=== PATIENT | female | born 1950 | race Caucasian/White ===

== ENCOUNTER 2021-12-08 08:01 | Observation (INO) ==
--- NOTE | 2021-11-07 09:57 | PAT Medication Instructions ---
Medication Instructions Date of Service November 07, 2021 Home Medications Medication Instructions Recorded tramadol 50 mg tablet 50 mg PO Q6H PRN #30 tab 10/17/21 Lactobacillus acidophilus 1.5 mg (250 million cell) capsule (Probiotic Acidophilus) 1 mmu cells PO DAILY albuterol sulfate 90 mcg/actuation aerosol inhaler (Ventolin HFA) 1 inh INHALATION QID biotin 2,500 mcg capsule 5,000 mcg PO DAILY cholecalciferol (vitamin D3) 125 mcg (5,000 unit) capsule 125 mcg PO DAILY citalopram 40 mg tablet 20 mg PO QAM diclofenac sodium 1 % topical gel 2 g TOPICAL QID losartan 100 mg tablet 100 mg PO QAM multivitamin 1 tab PO DAILY nystatin 100,000 unit/gram topical cream 1 applic TOPICAL DAILY PRN omega 2-tnl-cch-fish oil 300 mg-1,000 mg capsule (Fish Oil) 1 cap PO BID omeprazole 40 mg capsule,delayed release 40 mg PO BID simvastatin 20 mg tablet 20 mg PO QPM triamterene 37.5 mg-hydrochlorothiazide 25 mg capsule 1 cap PO QAM valacyclovir 1 gram tablet 1,000 mg PO UD PRN tramadol 50 mg tablet 50 mg PO Q6H PRN cyanocobalamin (vitamin B-12) 1,000 mcg/mL injection kit 1,000 mcg IM MONTHLY fluticasone 100 mcg-salmeterol 50 mcg/dose blistr powdr for inhalation (Advair Diskus) 1 inh INHALATION BID STOP taking 2 weeks before surgery (or as soon as possible if surgery is within 2 weeks) omega 2-ogb-vtp-fish oil 300 mg-1,000 mg capsule (Fish Oil) 1 cap PO BID STOP taking 24 hours before surgery diclofenac sodium 1 % topical gel 2 g TOPICAL QID nystatin 100,000 unit/gram topical cream 1 applic TOPICAL DAILY PRN DO NOT take the morning of surgery Lactobacillus acidophilus 1.5 mg (250 million cell) capsule (Probiotic Acidophilus) 1 mmu cells PO DAILY biotin 2,500 mcg capsule 5,000 mcg PO DAILY cholecalciferol (vitamin D3) 125 mcg (5,000 unit) capsule 125 mcg PO DAILY losartan 100 mg tablet 100 mg PO QAM multivitamin 1 tab PO DAILY triamterene 37.5 mg-hydrochlorothiazide 25 mg capsule 1 cap PO QAM cyanocobalamin (vitamin B-12) 1,000 mcg/mL injection kit 1,000 mcg IM MONTHLY Take morning of surgery With a small sip of water, OTHERWISE NOTHING TO EAT OR DRINK AFTER MIDNIGHT: albuterol sulfate 90 mcg/actuation aerosol inhaler (Ventolin HFA) 1 inh INHALATION QID (use if needed; please bring rescue inhaler with you to hospital day of surgery if possible) citalopram 40 mg tablet 20 mg PO QAM omeprazole 40 mg capsule,delayed release 40 mg PO BID valacyclovir 1 gram tablet 1,000 mg PO UD PRN (if needed) tramadol 50 mg tablet 50 mg PO Q6H PRN (okay to take up to 4 hours prior to surgery if needed) fluticasone 100 mcg-salmeterol 50 mcg/dose blistr powdr for inhalation (Advair Diskus) 1 inh INHALATION BID Take evening before surgery albuterol sulfate 90 mcg/actuation aerosol inhaler (Ventolin HFA) 1 inh INHALATION QID omeprazole 40 mg capsule,delayed release 40 mg PO BID simvastatin 20 mg tablet 20 mg PO QPM valacyclovir 1 gram tablet 1,000 mg PO UD PRN (if needed) tramadol 50 mg tablet 50 mg PO Q6H PRN (if needed) fluticasone 100 mcg-salmeterol 50 mcg/dose blistr powdr for inhalation (Advair D iskus) 1 inh INHALATION BID Other Notes If you have any questions please call us at [phone] or [phone] or [phone] or [phone]
--- NOTE | 2021-11-11 12:58 | Anesthesiology Consultation ---
Date of Service November 11, 2021 Assessment & Plan (1) Encounter for pre-operative examination: COVID screening: Per assessment on 11/11: No known COVID-19 positive contacts or current COVID-19 related symptoms. Travel screen negative. Patient vaccinated. Surgeon arranging preop COVID testing. Awaiting results. Chart Review Chart Review: Acceptable Risk for Surgery and Patient seen in Pre Admission Testing Teaching & Discussion Pre-Anesthesia Teaching/Discussion Notes: Instructed NPO after midnight before surgery,except medications with 15 cc of water. Medication instructions p rovided according to the PAT guidelines. History Surgery Operation Date: 12/08/21 10:40 Proposed Procedures p Left Anterior Total Hip Arthroplasty - Anand Katz, Height/Weight Height: 5 ft 6 in Weight: 80.7 kg Allergies Allergy/AdvReac Type Severity Reaction Status Date / Time gabapentin AdvReac Intermediate "Zombie-like, Verified 11/11/21 08:47 spaced out" milk AdvReac Intermediate Migraines Verified 11/11/21 08:47 Medications Home Medications Medication Instructions Recorded Confirmed Last Taken Lactobacillus acidophilus 1.5 mg 1 mmu cells PO DAILY 10/13/21 11/06/21 Unknown (250 million cell) capsule (Probiotic Acidophilus) albuterol sulfate 90 mcg/actuation 1 inh INHALATION QID 10/13/21 11/06/21 Unknown aerosol inhaler (Ventolin HFA) biotin 2,500 mcg capsule 5,000 mcg PO DAILY cap 10/13/21 11/06/21 Unknown cholecalciferol (vitamin D3) 125 125 mcg PO DAILY 10/13/21 11/06/21 Unknown mcg (5,000 unit) capsule citalopram 40 mg tablet 20 mg PO QAM 10/13/21 11/06/21 Unknown diclofenac sodium 1 % topical gel 2 g TOPICAL QID 10/13/21 11/06/21 Unknown losartan 100 mg tablet 100 mg PO QAM 10/13/21 11/06/21 Unknown multivitamin 1 tab PO DAILY 10/13/21 11/06/21 Unknown nystatin 100,000 unit/gram topical 1 applic TOPICAL DAILY PRN 10/13/21 11/06/21 Unknown cream omega 1-ate-umt-fish oil 300 1 cap PO BID 10/13/21 11/06/21 Unknown mg-1,000 mg capsule (Fish Oil) omeprazole 40 mg capsule,delayed 40 mg PO BID 10/13/21 11/06/21 Unknown release simvastatin 20 mg tablet 20 mg PO QPM 10/13/21 11/06/21 Unknown triamterene 37.5 1 cap PO QAM 10/13/21 11/06/21 Unknown mg-hydrochlorothiazide 25 mg capsule valacyclovir 1 gram tablet 1,000 mg PO UD PRN 10/13/21 11/06/21 Unknown tramadol 50 mg tablet 50 mg PO Q6H PRN #30 tab 10/17/21 11/06/21 Unknown cyanocobalamin (vitamin B-12) 1,000 mcg IM MONTHLY 11/06/21 11/06/21 Unknown 1,000 mcg/mL injection kit fluticasone 100 mcg-salmeterol 50 1 inh INHALATION BID 11/06/21 11/06/21 Unknown mcg/dose blistr powdr for inhalation (Advair Diskus) tramadol 50 mg tablet 50 mg PO Q6H PRN #30 tab 11/11/21 11/11/21 Unknown Past Medical History Medical History Asthma Stable Bradycardia Chronic Degenerative disc disease Depression GERD (gastroesophageal reflux disease) Controlled Hematoma Left hip, easy bruising recent development, following with PCP who recently ordered coags Hiatal hernia Moderately large per 04/2021 CXR History of anemia Hgb 11-12 range per comparison labs Hyperlipidemia Hypertension Migraine Pneumothorax 03/2021 s/p chest tube (r/t fall/rib fractures) Thyroid nodule Exercise / Class Metabolic Activity III < 4 Walking/Shop/Light housework Past Family History Family History Other Heart disease No family history of adverse response to anesthesia Stroke Past Surgical History Surgical History H/O laparoscopy History of appendectomy History of bunionectomy Right History of cataract surgery R/L History of colonoscopy History of tonsillectomy and adenoidectomy Past Anesthesia History No Hx of Anesthesia Complications and No Family Hx of Anesthesia Complications History of PONV No Hx of PONV and Hx of Motion Sickness (rare) Social History Smoking Status: Never smoker Do You Dip or Chew Tobacco: No Hx Alcohol Use: Yes alcohol intake frequency: holidays/special occasions only Hx Substance Use: No substance use type: does not use Review of Systems Patient denies chest pain, shortness of breath, fever, chills, cough, wheezing, palpitations. Physical Exam Vital Signs VITALS BP 145/77 P 64 TEMP 97.9 SP02 98%RA RESP 18 PHYSICAL Full cervical extension range of motion. Full TMJ range of motion. TMD 3 finger breaths Mallampati Score 4 (very small oral opening) Dentition: upper/lower dentures Lungs: clear throughout to auscultation Cardiac: regular rate and rhythm, no murmurs noted Spine: normal Carotid arteries: negative bruit Extremities: no edema Lab Results Anesthesia Preop Results Results Anesthesia Widget: WBC 4.39 K/uL (4.8-10.8) L 11/11/21 Hgb 11.2 g/dL (12.0-16.0) L 11/11/21 Hct 33.9 % (37-47) L 11/11/21 Plt 307 K/uL (130-400) 11/11/21 Na 132 mmol/L (136-145) L 11/11/21 K 4.4 mmol/L (3.5-5.1) 11/11/21 Cl 98 mmol/L (98-107) 11/11/21 CO2 27 mmol/L (21-32) 11/11/21 BUN 18 mg/dl (6-23) 11/11/21 Creat 1.22 mg/dl (0.6-1.2) H 11/11/21 Glucose Level 81 mg/dl (70-99(Fasting)) 11/11/21 Blood Type A Positive 11/11/21 Antibody Screen NEGATIVE 11/11/21 Testing Laboratory Results 11/05/21 PT 11.0 PTT 33.1 INR 0.97 Electrocardiogram Date: 03/14/21 Sinus rhythm with first-degree AV block at 69 bpm. Pattern consistent with pulmonary disease. LAFB. Chest X-Ray Date: 04/22/21 Negative for pneumothorax status post removal of pleural tube. Continued right upper lateral chest wall pleural thickening at the site of previously demonstrated rib fractures. Moderate large hiatal hernia. No pleural effusion or lung infiltrate seen. Echocardiogram Date: 12/31/20 EF 60-65%. No regional motion abnormalities. Mild LAD. No significant valvular disease.
--- NOTE | 2021-12-04 12:21 | History & Physical Report ---
Date of Service December 04, 2021 Assessment & Plan (1) Osteoarthritis of left hip: We will proceed with a left anterior total of arthroplasty. Postoperatively she will be started on aspirin for DVT prophylaxis and kept overnight in the hospital for postoperative medical management. She plans to have the hospital set up home health upon discharge. History of Present Illness Chief Complaint: Osteoarthritis left hip. Primary Care Provider: Gaviota Lin Toshia Benitez is a pleasant 71-year-old female who has been dealing with chronic worsening bilateral hip pain. It has gone to the point where she has fallen several times. She recently went to the emergency room where she had a CAT scan of her hips. The CAT scan shows advanced arthritis. She really struggles with pain in her groin that radiates around her thigh and into her gluteal region. She does walk with an antalgic gait. X-rays in our office have shown advanced osteoarthritis of the left hip. After failing conservative treatment, she has elected proceed with a left anterior total hip arthroplasty.. Allergies Allergy/AdvReac Type Severity Reaction Status Date / Time gabapentin AdvReac Intermediate "Zombie-like, Verified 11/11/21 08:47 spaced out" milk AdvReac Intermediate Migraines Verified 11/11/21 08:47 Home Medications Medication Instructions Recorded Confirmed Type Lactobacillus acidophilus 1.5 mg 1 mmu cells PO DAILY 10/13/21 11/06/21 History (250 million cell) capsule (Probiotic Acidophilus) albuterol sulfate 90 mcg/actuation 1 inh INHALATION QID 10/13/21 11/06/21 History aerosol inhaler (Ventolin HFA) biotin 2,500 mcg capsule 5,000 mcg PO DAILY cap 10/13/21 11/06/21 History cholecalciferol (vitamin D3) 125 125 mcg PO DAILY 10/13/21 11/06/21 History mcg (5,000 unit) capsule citalopram 40 mg tablet 20 mg PO QAM 10/13/21 11/06/21 History diclofenac sodium 1 % topical gel 2 g TOPICAL QID 10/13/21 11/06/21 History losartan 100 mg tablet 100 mg PO QAM 10/13/21 11/06/21 History multivitamin 1 tab PO DAILY 10/13/21 11/06/21 History nystatin 100,000 unit/gram topical 1 applic TOPICAL DAILY PRN 10/13/21 11/06/21 History cream omega 4-fhl-mlo-fish oil 300 1 cap PO BID 10/13/21 11/06/21 History mg-1,000 mg capsule (Fish Oil) omeprazole 40 mg capsule,delayed 40 mg PO BID 10/13/21 11/06/21 History release simvastatin 20 mg tablet 20 mg PO QPM 10/13/21 11/06/21 History triamterene 37.5 1 cap PO QAM 10/13/21 11/06/21 History mg-hydrochlorothiazide 25 mg capsule valacyclovir 1 gram tablet 1,000 mg PO UD PRN 10/13/21 11/06/21 History tramadol 50 mg tablet 50 mg PO Q6H PRN #30 tab 10/17/21 11/06/21 Rx cyanocobalamin (vitamin B-12) 1,000 mcg IM MONTHLY 11/06/21 11/06/21 History 1,000 mcg/mL injection kit fluticasone 100 mcg-salmeterol 50 1 inh INHALATION BID 11/06/21 11/06/21 History mcg/dose blistr powdr for inhalation (Advair Diskus) tramadol 50 mg tablet 50 mg PO Q6H PRN #30 tab 11/11/21 11/11/21 Rx Past Med/Surg History Medical History Asthma Stable Bradycardia Chronic Degenerative disc disease Depression GERD (gastroesophageal reflux disease) Controlled Hematoma Left hip, easy bruising recent development, following with PCP who recently ordered coags Hiatal hernia Moderately large per 04/2021 CXR History of anemia Hgb 11-12 range per comparison labs Hyperlipidemia Hypertension Migraine Pneumothorax 03/2021 s/p chest tube (r/t fall/rib fractures) Thyroid nodule Surgical History H/O laparoscopy History of appendectomy History of bunionectomy Right History of cataract surgery R/L History of colonoscopy History of tonsillectomy and adenoidectomy Family History Other Heart disease No family history of adverse response to anesthesia Stroke Social History Smoking Status: Never smoker Second Hand Exposure: No; Hx Alcohol Use: Yes Hx Substance Use: No Preferred Language: [place] Aircraft Ordnance Technician Required: No Beliefs That Will Affect Care: None marital status: Current Living Situation: Spouse current occupational status: retired Feels Safe at Home: Yes Assistive Devices: Denture - Upper, Denture - Lower and Glasses Review of Systems All systems reviewed & are unremarkable except as noted in HPI & below. Physical Exam On physical examination of the left hip, she has trouble lying flat. She has very limited range of motion of her hip. She has pain with forced internal and external rotation.. Constitutional WD/WN, vitals as above Eyes PERRL, conjunctivae normal, anicteric sclerae ENMT external ear and nose normal, oropharynx normal Neck trachea midline, no thyromegaly Respiratory normal respiratory effort Cardiovascular RRR, no murmur, no edema Gastrointestinal (Abdomen) normal bowel sounds, soft, nontender, no hepatosplenomegaly Psychiatric A+Ox3, euthymic affect Results & Data Results & Data Laboratory Results . Diagnostic Findings X-rays of the left hip and pelvis show advanced osteoarthritis with joint space narrowing, osteophyte formation, and [id number] articulation PG Care Time/CCT Total # of Minutes Spent Total Time Spent with Patient: Total time spent is greater than 50% in coordination of care (as documented) at patient's floor/unit and/or counseling patient: Coding Level of Care Code None Diagnoses Osteoarthritis of left hip M16.12
[~2021-12-08 08:01] MED LIST: ACETAMINOPHEN 500 MG TAB PO SCH; BUPIVACAINE 0.5 % 5 MG/1 ML PF 10ML VIAL ONE; GABAPENTIN 300 MG CAP PO SCH; Ketorolac (*for OR use only*) 30 MG, dexAMETHasone 4 MG, KETAMINE HCL (**OR use only) 1... INFIL SCH; LR 500ML BOLUS, THEN 15ML/HR IV SCH; LR 60ML/HR IV SCH; TRANEXAMIC ACID 1,000 MG **IV Intra-op IV SCH; TRANEXAMIC ACID 1,000 MG **IV Pre-op IV SCH; ceFAZolin 2000MG 2,000 MG/15 ML SYR IV SCH; dexAMETHasone 4 MG TAB PO SCH
--- NOTE | 2021-12-08 08:30 | History & Physical Bridge Note ---
Date of Service December 08, 2021 History & Physical Bridge Note I have examined the patient, reviewed the History & Physical and in the interval since the performance of the History & Physical I have noted the following changes of clinical significance: no changes noted
[2021-12-08] MEDS ORDERED: MIDAZOLAM HCL 1 MG/ML 2ML VIAL ONE (10:19)
[2021-12-08] MEDS ORDERED: HYDROmorphone INJ 1 MG/ML SYRINGE IV PRN (10:27)
[2021-12-08] MEDS ORDERED: KETOROLAC 30 MG/ML VIAL IV PRN (10:27)
[2021-12-08] MEDS ORDERED: ATROPINE SULFATE 0.1 MG/ML 10ML SYR IV PRN (10:27)
[2021-12-08] MEDS ORDERED: ONDANSETRON INJ 2 MG/ML 2 ML VIAL IV PRN ×2 (10:27→14:43)
[2021-12-08] MEDS ORDERED: ORTHO JOINT ANESTHETIC ONE (11:50)
[2021-12-08] MEDS ORDERED: LIDOCAINE 2% 2 ML VIAL/AMP(20MG/ML) INFIL ONE (12:22)
[2021-12-08] MEDS ORDERED: PROPOFOL IV EMULSION 10 MG/ML 20 ML VIAL IV ONE (12:22)
--- NOTE | 2021-12-08 13:02 | Fluoroscopy Report ---
FL hip LT 1V CLINICAL HISTORY: Total left hip arthroplasty. COMPARISON STUDY: Left hip radiographs October 13, 2021. FLUOROSCOPY TIME: 23 seconds. FLUOROSCOPIC IMAGES: 2 FINDINGS: Fluoroscopy was provided during total left hip arthroplasty. Alignment is anatomic. Acetabu lar screw is noted. Hardware is intact. No fracture is identified by fluoroscopy. IMPRESSION: Fluoroscopy provided during total left hip arthroplasty. ACT 112: Negative or not required by law. Electronically signed by: Tin Gomez M.D. 12/08/2021 1:00 PM
--- NOTE | 2021-12-08 13:08 | Operative Report ---
PG Post Operative Report Pre & Post Diagnosis Operation Date: 12/08/21 10:40 Pre-Op Diagnosis: Left Hip Osteoarthritis Post-Op Diagnosis: Left Hip Osteoarthritis I identified the patient and participated in the time-out.: Yes Procedure Operation Date: 12/08/21 10:40 Actual Procedures p Left Anterior Total Hip Arthroplasty--Uncemented(Left) - Anand Katz DO Surgeon Anand Katz DO Buckle Inspector Anand Owusu PAC Estimated Blood Loss 250 Findings Consistent with Post-Op Diagnosis Specimens Left femoral head Complications none Disposition Disposition: Recovery Room Indications Eli is a pleasant 71-year-old female who is been dealing with chronic increa sing left hip and groin pain. X-rays and clinical examination were diagnostic for advanced arthritis of the left hip. After failing conservative treatment, she elected proceed with a left total hip arthroplasty. Description of Procedure Implants used I used a ZimmerBiomet total hip arthroplasty system with a size 5 standard offset Avenir Complete stem, a 50 mm G7 cup with a 25mm screw, an E1 polyethylene liner, a 36 mm ceramic head with a 0 neck. Eli arrived at the hospital for the above procedure. She was seen in the preoperative holding area and the operative extremity was identified and signed. She was given a spinal anesthetic, a preoperative antibiotic, and TXA. She was then taken back to the operating room and laid on the table in the supine position. She was given basic sedation. The operative leg was secured to a Puristst leg positioner. The hip was then prepped and draped in sterile fashion. A timeout was done and the patient and the operative extremity was properly identified. An anterior approach was used. Dissection was taken down through the fascia and the tensor muscle belly was retracted laterally and the rectus was retracted medially. The circumflex vessels were identified and ligated. The capsule was then incised and tagged for later repair. The femoral neck was then cut and the femoral head was removed. The acetabulum was exposed. Time was spent doing a complete circumferential labral release. Sequential reaming of the acetabulum up to a size 49 reamer was done. Final reamings were done under fluoroscopy to ensure appropriate version. A Biomet 50mm G7 cup was then impacted into place. A single 25 mm screw was placed. The E1 polyethylene liner was then snapped into place. Surrounding soft tissues were then injected with 100 cc of an orthopedic pain control cocktail. The proximal femur was then exposed. Sequential broaching up to a size 5 broach was done. Off that broach a size 36 head with a 0 neck was trialed. The hip was reduced and fluoroscopic images showed anatomic alignment of the implants in acceptable length. The broach was removed. The final size 5 standard offset Avenir Complete stem was then impacted into place. A ceramic 36mm head with a 0 neck was then impacted onto the stem and the hip was reduced. Final fluoroscopic images showed anatomic alignment of the hip. The capsule was then closed with #1 Vicryl suture. A dilute betadyne lavage was then done for 3 minutes. The joint was then irrigated with normal saline solution. The fascia was closed with #1 PDS suture. Skin was closed with 2-0 Vicryl, marcia, and a Silverlon dressing. She was then transferred to a hospital bed and taken to the post anesthesia care unit in stable condition. She tolerated the procedure well. Anand Owusu PA-C, was present for the entire procedure. He was critical for patient positioning, prepping, draping, retraction exposure, wound closure and application of sterile dressing. I attest to the content of the Intraoperative Record and any orders documented therein. Any exceptions are noted below.
--- NOTE | 2021-12-08 13:45 | Anesthesiology Progress Note ---
Date of Service December 08, 2021 Anesthesia Post Procedure Vital Signs Vital Signs: Temp Pulse Pulse Resp BP BP Pulse Ox 12/08/21 13:35 56 L 16 142/84 H 95 12/08/21 13:25 59 L 16 129/81 95 12/08/21 13:15 36.6 C 70 16 131/81 97 12/08/21 08:29 36.6 C 60 18 141/98 H 97 Pain Intensity Left Hip: Pain Intensity: 5 Transfer of Care Handoff Completed per policy Notes Mental Status: alert / awake / arousable Patient Amnestic to Procedure: Yes Nausea / Vomiting: adequately controlled Pain: adequately controlled Airway Patency, RR, SpO2: stable & adequate BP & HR: stable & adequate Hydration State: stable & adequate Neuraxial Anesthesia: was administered and sensory block is resolving Anesthetic Complications: no major complications apparent
--- NOTE | 2021-12-08 14:01 | XRay Report ---
XR hip 1V LT w pelvis CLINICAL HISTORY: Postoperative evaluation. COMPARISON: Left hip radiographs October 13, 2021. FINDINGS: Alignment of the total left hip arthroplasty is anatomic. No periprosthetic fracture or un expected radiopaque foreign body is noted. There are skin marcia. IMPRESSION: Expected findings following total left hip arthroplasty. ACT 112: Negative or not required by law. Electronically signed by: Tin Gomez M.D. 12/08/2021 1:59 PM
[2021-12-08] MEDS ORDERED: MAGNESIUM HYDROXIDE SUSP 30 ML UDC PO PRN (14:43)
[2021-12-08] MEDS ORDERED: valACYclovir HCL 500 MG TABLET PO PRN (14:43)
[2021-12-08] MEDS ORDERED: METOCLOPRAMIDE HCL INJ 5 MG/ML 2 ML VIAL IV PRN (14:43)
[2021-12-08] MEDS ORDERED: bisacodyL 10 MG SUPP PR PRN (14:43)
[2021-12-08] MEDS ORDERED: NALOXONE HCL 0.4 MG/1 ML VIAL/CARP IV PRN (14:43)
[2021-12-08] MEDS ORDERED: NYSTATIN CR 15 GM TUBE EXT PRN (14:43)
[2021-12-08] MEDS: ACETAMINOPHEN 500 MG TAB PO SCH ×2 (16:16→20:46)
[2021-12-08] MEDS: KETOROLAC TROMETHAMINE 15 MG/ML VIAL IV SCH ×2 (16:17→20:46)
[2021-12-08] MEDS: SODIUM CHLORIDE 0.9% 1000ML 1,000 ML IV SCH (16:20)
[2021-12-08] MEDS: ALBUTEROL HFA 8 GM INHALER INH SCH ×2 (16:40→19:19)
[2021-12-08] MEDS: DICLOFENAC SOD 1% GEL 100 GM TUBE EXT SCH ×2 (18:11→20:47)
[2021-12-08] MEDS: oxyCODONE HCL IR 5 MG TAB (IMMEDIATE RELEASE) PO PRN ×2 (18:16→21:52)
[2021-12-08] MEDS: ceFAZolin 2000MG 2,000 MG/15 ML SYR IV SCH (18:17)
[2021-12-08] MEDS: ASPIRIN 81 MG ECTAB PO SCH (20:46)
[2021-12-08] MEDS: DOCUSATE SODIUM 100 MG CAP PO SCH (20:46)
[2021-12-08] MEDS ORDERED: SENNA 8.6 MG TAB PO SCH (21:00)
[2021-12-08] MEDS ORDERED: SIMVASTATIN 20 MG TAB PO SCH (21:00)
[2021-12-08] MEDS: HYDROmorphone INJ 0.5 MG/0.5 ML SYR IV PRN (22:37)
[2021-12-09] MEDS: SODIUM CHLORIDE 0.9% 1000ML 1,000 ML IV SCH (01:06)
[2021-12-09] MEDS: oxyCODONE HCL IR 5 MG TAB (IMMEDIATE RELEASE) PO PRN ×2 (01:27→11:12)
[2021-12-09] MEDS: ceFAZolin 2000MG 2,000 MG/15 ML SYR IV SCH (02:15)
[2021-12-09] MEDS: HYDROmorphone INJ 0.5 MG/0.5 ML SYR IV PRN (02:15)
[2021-12-09] MEDS: KETOROLAC TROMETHAMINE 15 MG/ML VIAL IV SCH ×2 (03:08→09:26)
[2021-12-09] MEDS: ACETAMINOPHEN 500 MG TAB PO SCH (05:30)
--- NOTE | 2021-12-09 06:37 | Orthopedic Progress Note ---
Date of Service December 09, 2021 Assessment & Plan (1) Status post left hip replacement: Overall she is doing well. She is having much pain in the left hip. She will be seen by physical therapy today for ambulation and range of motion exercises. She is on aspirin for DVT prophylaxis. She can be discharged home later today. She will follow-up with orthopedics in 2 weeks. Katharine Benitez was seen and examined at bedside this morning. Overall she is doing very well. She has a little bit of soreness in her hip but is not too bad. She has been up and ambulating to the bathroom. She has no complaints. Review of Systems All systems reviewed & are unremarkable except as noted in HPI & below. Physical Exam On physical examination of the left hip, the dressing is clean and dry. Her leg lengths are equal. She has active dorsiflexion plantarflexion of her left ankle.. Results & Data Results & Data Laboratory Results . Diagnostic Findings Postoperative x-rays of the left hip show the prosthesis to be in anatomic alignment without any evidence of fracture, desiccation, or loosening. PG Care Time/CCT Total # of Minutes Spent Total Time Spent with Patient: Total time spent is greater than 50% in coordination of care (as documented) at patient's floor/unit and/or counseling patient: Coding Level of Care Code 43819 Post Operative Follow-Up Diagnoses Status post left hip replacement Z96.642
--- NOTE | 2021-12-09 06:38 | Discharge Summary ---
Date of Service December 09, 2021 Admission HPI (Per Admitting) Eli is a pleasant 71-year-old female who has been dealing with chronic worsening bilateral hip pain. It has gone to the point where she has fallen several times. She recently went to the emergency room where she had a CAT scan of her hips. The CAT scan shows advanced arthritis. She really struggles with pain in her groin that radiates around her thigh and into her gluteal region. She does walk with an antalgic gait. X-rays in our office have shown advanced osteoarthritis of the left hip. After failing conservative treatment, she has elected proceed with a left anterior total hip arthroplasty.. Admission Exam (Per Admitting) On physical examination of the left hip, she has trouble lying flat. She has very limited range of motion of her hip. She has pain with forced internal and external rotation.. Principal Diagnosis Same as "Discharge Diagnosis" noted below under Discharge Instructions. Discharge Exam On physical examination of the left hip, the dressing is clean and dry. Her leg lengths are equal. She has active dorsiflexion plantarflexion of her left ankle.. Discharge Data Procedures Performed Operation Date: 12/08/21 10:40 Actual Procedures p Left Anterior Total Hip Arthroplasty--Uncemented(Left) - Anand Katz DO Ordered Studies 12/08/21 10:40 FL hip LT 1V Routine Hospital Course (1) Status post left hip replacement: On December 08, 2021 Eli arrived at [facility] and underwent a left hip replacement without complication. She had a spinal anesthetic. Postoperatively she was started on aspirin for DVT prophylaxis and transferred to the general orthopedic floors. Her hospital course was uneventful. On postop day #1, her vital signs were stable and her pain was well controlled. She was able to participate well with physical therapy doing ambulation and range of motion exercises. She was then discharged home. She will follow with orthopedics in 2 weeks. PG Care Time/CCT Total # of Minutes Spent Total Time Spent with Patient: Total time spent is greater than 50% in coordination of care (as documented) at patient's floor/unit and/or counseling patient: Discharge Plan Discharge Items Patient Disposition: Home - Home Health Services Reason For Visit: DJD Left Hip Discharge Diagnosis: Left hip replacement Activity: Per Instructions section Non-emergency contact: Surgeon Call non-emergency contact if: your wound has increased redness and your wound has increased drainage Follow-up/Referrals: Gaviota Pope D.O. [Primary Care Provider] - Diet: Regular Addtl Attending Provider Instructions: Activity and Therapy Recommendations: * If you are using [facility] then therapy will be provided at your home until they feel you have accomplished all of your goals. * If you are using [facility] then Physical Therapy will be provided until they feel you are ready to start Outpatient Physical Therapy. * If you are not using home therapy then Outpatient Physical Therapy should start about 3-5 days from your day of surgery. Therapy will last about 6-10 weeks * You were shown a series of exercises in the hospital. Do these exercises three times each day including the exercises you were shown in physical therapy. * Get up and walk several times each day.~ For the first four weeks, try not to stand or walk for more than one hour at a time. If you do stand or walk for more than one hour, you will not hurt anything, but your leg will likely swell.~~ * As you feel comfortable, you may change from the walker or crutches to a cane and~then to independent walking. Medications: * Narcotic You will likely be sent home from the hospital with a prescription for the narcotic pain medication that worked best throughout your stay. * Aspirin Most patients will be required to take Aspirin 81mg twice a day for 6 weeks after surgery. This is obtained [id number] and a prescription is not necessary. * Other medications may be prescribed for specific circumstances. If you have any questions, please call the office at . * Resume previous home medications unless otherwise instructed TEDs/Elastic Stockings: The white elastic stockings help limit swelling and prevent blood clots from forming in your legs. The more you wear them, the more they work. Wear them for six weeks. Dressing Care: Leave the Silverlon dressing in place for 7 days. After 7 days you may remove the dressing. If the incision is not draining then you may leave the marcia open to air. If there is a little bit of drainage or if the marcia are getting stuck on your clothing then cover the incision with a dry dressing. The marcia will be removed at your 2 week follow-up appointment. Showering: You may shower with the Silverlon dressing in place. Do not let the shower spray hit the dressing directly. Pat the Silverlon dressing dry. If the dressing becomes wet underneath, then simply remove the dressing. Keep the incision dry until you are 7 days out from the day of surgery. After 7 days you may remove the Silverlon dressing and shower with the marcia exposed. Let soapy water run over the marcia and pat them dry. Do not scrub or soak the incision. Things To Watch For: * Drainage from the incision site that occurs more than one week after your surgery. * Increased redness at the incision site. * Fever above 102 degrees Fahrenheit. * Unusual chest pain or shortness of breath. * Call [facility] at with any of the above problems Follow-Up Visit: Follow-up with Dr. Katz's PA (Anand Owusu) 2-3 weeks after your day of surgery. He will remove your marcia and answer any questions. If you have any additional questions or concerns, Dr Katz is usually in the office at the same time and will be available An appointment was probably scheduled when you signed-up for surgery in the office. If you have any questions call Office Instructions: More detailed instructions as well as Frequently Asked Questions were provided in a folder by our office when you signed-up for surgery. Please review these instructions when you get home. If you have any further questions or concerns, please feel free to call the office at [phone] Pending Studies at Discharge: No Stand-Alone Forms: My [facility] Medications and DC Order Prescriptions: New oxycodone-acetaminophen 5-325 mg tablet 1 tab PO Q6H PRN (Reason: pain) Qty: 30 RF: 0 aspirin 81 mg Tablet,Delayed Release (Dr/Ec) 81 mg PO BID 42 Days Qty: 84 RF: 0 Continued tramadol 50 mg tablet 50 mg PO Q6H PRN (Reason: pain) Qty: 30 RF: 0 biotin 2,500 mcg capsule 5,000 mcg PO DAILY RF: 0 cholecalciferol (vitamin D3) 125 mcg (5,000 unit) capsule 125 mcg PO DAILY RF: 0 citalopram 40 mg tablet 40 mg PO QAM RF: 0 diclofenac sodium 1 % gel 2 g topical QID RF: 0 omega 2-gqs-frh-fish oil [Fish Oil] 300-1,000 mg capsule 1 cap PO BID RF: 0 losartan 100 mg tablet 100 mg PO QAM RF: 0 multivitamin Tablet 1 tab PO DAILY RF: 0 nystatin 100,000 unit/gram cream 1 applic topical DAILY PRN (Reason: NEEDED) RF: 0 omeprazole 40 mg capsule,delayed release(DR/EC) 40 mg PO BID RF: 0 Probiotic Acidophilus 1.5 mg (250 million cell) capsule 1 mmu cells PO DAILY RF: 0 simvastatin 20 mg tablet 20 mg PO QPM RF: 0 triamterene-hydrochlorothiazid 37.5-25 mg capsule 1 cap PO QAM RF: 0 valacyclovir 1 gram tablet 1,000 mg PO UD PRN (Reason: Sweating) RF: 0 albuterol sulfate [Ventolin HFA] 90 mcg/actuation HFA aerosol inhaler 1 inh inhalation QID RF: 0 tramadol 50 mg tablet 50 mg PO Q6H PRN (Reason: pain) Qty: 30 RF: 0 fluticasone propion-salmeterol [Advair Diskus] 100-50 mcg/dose Blister With Device 1 inh INHALATION BID RF: 0 cyanocobalamin (vitamin B-12) 1,000 mcg/mL Kit 1,000 mcg IM MONTHLY RF: 0 Discharge Orders: Discharge Order (Routine); Ordered 12/09/21 Ordered By: Anand Katz Admission Data Admit Date/Time: 12/08/21 13:15 Attending Provider: Anand Katz Admit Provider: Anand Katz Primary Care Provider: Gaviota Pope
[2021-12-09] MEDS: ALBUTEROL HFA 8 GM INHALER INH SCH ×2 (07:48→11:07)
[2021-12-09] MEDS ORDERED: dexAMETHasone 4 MG TAB PO SCH (08:00)
[2021-12-09] MEDS ORDERED: CITALOPRAM 40 MG TAB PO SCH (09:00)
[2021-12-09] MEDS ORDERED: TRIAMTERENE/HCTZ 37.5/25MG CAP PO SCH (09:00)
[2021-12-09] MEDS ORDERED: LOSARTAN POTASSIUM 50 MG TAB PO SCH (09:00)
[2021-12-09] MEDS ORDERED: MULTIVITAMIN TAB PO SCH (09:00)
[2021-12-09] MEDS ORDERED: FLUTICASONE/VILANTEROL 100/25MCG 14 PUFFS/INHALER INH SCH (09:00)
[2021-12-09] MEDS: ASPIRIN 81 MG ECTAB PO SCH (09:25)
[2021-12-09] MEDS: DOCUSATE SODIUM 100 MG CAP PO SCH (09:26)
[2021-12-09] MEDS: DICLOFENAC SOD 1% GEL 100 GM TUBE EXT SCH (09:27)
== END 2021-12-09 11:45 | disposition home health service (06) ==
LOC: ASU 08:01 → PACUINP 08:01 → EDINP 08:01 → 3E 15:04

== ENCOUNTER 2022-01-30 08:33 | Observation (INO) ==
--- NOTE | 2022-01-26 14:31 | Anesthesiology Consultation ---
Date of Service January 26, 2022 Assessment & Plan (1) Encounter for pre-operative examination: Chart Review Chart Review: Acceptable Risk for Surgery (pending preop Covid testing and DOS labs ) and Patient NOT seen in Pre Admission Testing - Preop labs need updated- will order CBC with diff, PPR and coags for DOS. Will leave to anesthesiologist discretion DOS if repeat CXR needed. Per nursing assessment 01/26/22, pt denies any recent travel. No known Covid positive exposures or Covid related symptoms. No known Covid infection in the past 90 days. Pt is fully vaccinated for Covid. Preop Covid testing scheduled 01/27/22= will await results Left YASEMIN 12/08/21= Done under SAB at L3-4 with one attempt. History Surgery Operation Date: 01/30/22 13:50 Proposed Procedures p Left Total Hip Revision - Anand Katz DO s Left Open Reduction Internal Fixation Left Greater Trochanteric Fracture - Anand Katz DO Height/Weight Height: 5 ft 6 in Weight: 77.111 kg Allergies Allergy/AdvReac Type Severity Reaction Status Date / Time clindamycin AdvReac Intermediate CDIFF Verified 01/26/22 13:17 gabapentin AdvReac Intermediate "Zombie-like, Verified 01/26/22 13:17 spaced out" milk AdvReac Intermediate Migraines Verified 01/26/22 13:17 Medications Home Medications Medication Instructions Recorded Confirmed Last Taken Lactobacillus acidophilus 1.5 mg 1 mmu cells PO QDL 10/13/21 01/26/22 12/06/21 (250 million cell) capsule (Probiotic Acidophilus) albuterol sulfate 90 mcg/actuation 1 inh inhalation TID 10/13/21 01/26/22 12/08/21 06:00 aerosol inhaler (Ventolin HFA) biotin 2,500 mcg capsule 5,000 mcg PO QAM 10/13/21 01/26/22 11/24/21 cholecalciferol (vitamin D3) 125 125 mcg PO QAM 10/13/21 01/26/22 12/04/21 mcg (5,000 unit) capsule citalopram 40 mg tablet 40 mg PO QAM 10/13/21 01/26/22 12/07/21 08:00 diclofenac sodium 1 % topical gel 2 g topical QID 0401/26/22 12/04/21 losartan 100 mg tablet 100 mg PO QAM 10/13/21 01/26/22 12/07/21 08:00 multivitamin 1 tab PO QAM 10/13/21 01/26/22 12/04/21 nystatin 100,000 unit/gram topical 1 applic topical DAILY PRN 10/13/21 01/26/22 11/24/21 cream NEEDED omega 1-fcp-tje-fish oil 300 1 cap PO BID 10/13/21 01/26/22 11/24/21 mg-1,000 mg capsule (Fish Oil) omeprazole 40 mg capsule,delayed 40 mg PO BID 10/13/21 01/26/22 12/08/21 06:00 release simvastatin 20 mg tablet 20 mg PO QPM 10/13/21 01/26/22 12/07/21 21:00 triamterene 37.5 1 cap PO QAM 10/13/21 01/26/22 12/07/21 08:00 mg-hydrochlorothiazide 25 mg capsule valacyclovir 1 gram tablet 1,000 mg PO UD PRN Sweating 10/13/21 01/26/22 Unknown fluticasone 100 mcg-salmeterol 50 1 inh inhalation BID 11/06/21 01/26/22 12/07/21 21:00 mcg/dose blistr powdr for inhalation (Advair Diskus) tramadol 50 mg tablet 50 mg PO Q8H PRN pain #60 tabs 01/20/22 01/26/22 Unknown Past Medical History Medical History Asthma Stable Bradycardia Chronic Degenerative disc disease Depression GERD (gastroesophageal reflux disease) Controlled Hiatal hernia Moderately large per 04/2021 CXR History of anemia Hgb 11-12 range per comparison labs History of anesthesia reaction Difficulty waking after left YASEMIN 11/2021 @ [facility] Hyperlipidemia Hypertension Migraine Pneumothorax 03/2021 s/p chest tube (r/t fall/rib fractures) Thyroid nodule Past Family History Family History Other Heart disease No family history of adverse response to anesthesia Stroke Past Surgical History Surgical History H/O laparoscopy History of appendectomy History of bunionectomy Right History of cataract surgery R/L History of colonoscopy History of tonsillectomy and adenoidectomy History of total left hip arthroplasty (~12/08/21) Dr. Katz @ [facility] Social History Smoking Status: Never smoker Do You Dip or Chew Tobacco: No Hx Alcohol Use: Yes alcohol intake frequency: holidays/special occasions only Hx Substance Use: No substance use type: does not use Testing Electrocardiogram Date: 03/14/21 Sinus rhythm with first-degree AV block at 69 bpm. Pattern consistent with pulmonary disease. LAFB. Chest X-Ray Date: 04/22/21 Negative for pneumothorax status post removal of pleural tube. Continued right upper lateral chest wall pleural thickening at the site of previously demonstrated rib fractures. Moderate large hiatal hernia. No pleural effusion or lung infiltrate seen. Echocardiogram Date: 12/31/20 Other Findings: no LVH EF 60-65%. No regional motion abnormalities. Mild LAD. Grade I DD. No significant valvular disease.
[~2022-01-30 08:33] MED LIST changes: -Ketorolac (*for OR use only*) 30 MG, dexAMETHasone 4 MG, KETAMINE HCL (**OR use only) 1... INFIL SCH
[2022-01-30] MEDS ORDERED: LIDOCAINE 2% 20 MG/ML 5 ML SYR IV ONE (10:03)
[2022-01-30] MEDS ORDERED: PROPOFOL IV EMULSION 10 MG/ML 20 ML VIAL IV ONE ×2 (10:03→13:13)
[2022-01-30] MEDS ORDERED: fentaNYL citrate 100 MCG/2 ML VIAL ONE ×2 (10:04→12:54)
[2022-01-30] MEDS ORDERED: MIDAZOLAM HCL 1 MG/ML 2ML VIAL ONE (10:04)
--- NOTE | 2022-01-30 10:58 | History & Physical Bridge Note ---
Date of Service January 30, 2022 History & Physical Bridge Note I have examined the patient, reviewed the History & Physical and in the interval since the performance of the History & Physical I have noted the following changes of clinical significance: no changes noted
[2022-01-30] MEDS ORDERED: BUPIVACAINE/EPINEPHRINE 0.25% 1:200,000 30 ML VIAL ONE (11:30)
[2022-01-30] MEDS ORDERED: BUPIVACAINE 0.25% 30 ML VIAL ONE (11:44)
[2022-01-30] MEDS ORDERED: DEXAMETHASONE SOD INJ 4 MG/ML VIAL ONE ×3 (11:44→13:13)
[2022-01-30] MEDS ORDERED: EPINEPHrine INJ 1 MG/ML AMP ONE (11:44)
[2022-01-30] MEDS ORDERED: ONDANSETRON INJ 2 MG/ML 2 ML VIAL IV PRN ×2 (13:08→16:02)
[2022-01-30] MEDS ORDERED: ePHEDrine sulfate 50 MG/ML AMP IV PRN (13:08)
[2022-01-30] MEDS ORDERED: fentaNYL citrate 100 MCG/2 ML VIAL IV PRN (13:08)
[2022-01-30] MEDS ORDERED: ATROPINE SULFATE 0.1 MG/ML 10ML SYR IV PRN (13:08)
[2022-01-30] MEDS ORDERED: PROMETHAZINE HCL 6.25 MG in SODIUM CHLORIDE 0.9% 50 ML IV PRN (13:08)
[2022-01-30] MEDS ORDERED: ePHEDrine sulfate 50 MG/ML AMP ONE (13:13)
[2022-01-30] MEDS ORDERED: PHENYLEPHRINE 100MCG/ML 5ML SYR ONE (13:13)
[2022-01-30] MEDS ORDERED: ROCURONIUM BROMIDE 10 MG/ML 5 ML VIAL IV ONE (13:13)
[2022-01-30] MEDS ORDERED: ONDANSETRON INJ 2 MG/ML 2 ML VIAL ONE ×2 (13:13→14:25)
--- NOTE | 2022-01-30 14:27 | Operative Report ---
PG Post Operative Report Pre & Post Diagnosis Operation Date: 01/30/22 11:35 Pre-Op Diagnosis: Left Greater Trochanteric Fracture Post-Op Diagnosis: Left Greater Trochanteric Fracture I identified the patient and participated in the time-out.: Yes Procedure Operation Date: 01/30/22 11:35 Actual Procedures p Left Open Reduction Internal Fixation Greater Trochanteric Fracture(Left) - Anand Katz DO Surgeon Anand Katz DO [employer] Anand Owusu PA-C Estimated Blood Loss 100 Findings Consistent with Post-Op Diagnosis Specimens None Description of Procedure On January 30, 2022 Eli arrived at [facility] for the above procedure. She was seen in the preoperative holding area and the operative extremity identified and signed. She was given a preoperative antibiotic. She was taken back the operating room and laid on the table in supine position. She was put in the lateral decubitus position. The left hip was then prepped and draped in sterile fashion. A timeout was done. The patient and the operative extremity was properly identified. A lateral approach was used to the hip. Dissection was taken down through the fascia. The greater trochanter and the abductors were exposed. There was a larger than expected fracture fragment of the greater trochanter. There was a hematoma that was evacuated. The entire hip was irrigated with pulse of loss. The greater trochanter fragment was reduced with a reduction clamp. Fluoroscopic images were used to ensure anatomic reduction. 2 guidepins were th en placed. A Synthes PPFx VA GT hook plate was then applied. Appropriate with alignment was checked on fluoroscopic images. Screws were placed both proximally and distally. Variable angle screws were used to maneuver around the prosthesis. 2 cerclage cables were then placed inferior to the lesser trochanter. Final fluoroscopic images showed anatomic reduction of the fracture and appropriate alignment of the plate. The hip was brought through a full range of motion and the fracture seem to be stable. The wound was then irrigated. The abductor sleeve was then closed with #1 Vicryl suture. The fascia was closed with #1 Vicryl. Skin was closed with 2-0 Vicryl and marcia. She was placed in a soft dressing and given an abductor pillow. She was then extubated and transferred to a [facility]. She was taken to the postanesthesia care unit in stable condition. She tolerated the procedure well. Anand Owusu PA-C, was present for the entire procedure. He was critical for patient positioning, prepping, draping, retraction exposure, wound closure and application of sterile dressing. I attest to the content of the Intraoperative Record and any orders documented t herein. Any exceptions are noted below.
--- NOTE | 2022-01-30 14:32 | Fluoroscopy Report ---
FL hip LT 2-3V CLINICAL HISTORY: LEFT ORIF GREATER TROCHANTERIC FX. Status post internal fixation COMPARISON STUDY: 01/20/2022 FLUOROSCOPY TIME: 40 seconds. FLUOROSCOPIC IMAGES: 2 C-arm images FINDINGS: The patient is status post total hip replacement with additional cerclage wires surrounding the greater trochanter. IMPRESSION: Status post internal fixation. ACT 112: Negative or not required by law. Electronically signed by: Cornel Hammer M.D. 01/30/2022 2:31 PM
--- NOTE | 2022-01-30 15:00 | XRay Report ---
XR hip 1V LT w pelvis CLINICAL HISTORY: IN PACU - A/P PELVIS and LATERAL HIP TECHNIQUE: 2 views of the left hip and single frontal view of the pelvis were obtained. Comparison: Comparison is made to left hip radiograph 12/08/2021 FINDINGS: Patient is status post total hip arthroplasty revision with expected postsurgical changes including s oft tissue swelling and subcutaneous emphysema. No periarticular lucency or hardware fracture is seen . Degenerative changes are seen in the lumbar spine. IMPRESSION: No evidence of acute osseous injury. ACT 112: Negative or not required by law. Electronically signed by: John Ricardo M.D. 01/30/2022 2:59 PM
--- NOTE | 2022-01-30 15:13 | Anesthesiology Progress Note ---
Date of Service January 30, 2022 Anesthesia Post Procedure Vital Signs Vital Signs: Temp Pulse Pulse Resp BP Pulse Ox O2 Del Method 01/30/22 15:05 36.1 C L 71 13 133/82 96 Room Air 01/30/22 14:45 78 15 138/86 97 Oxymask 01/30/22 14:55 73 20 141/84 H 100 Oxymask 01/30/22 14:38 36.7 C 77 13 137/70 97 Oxymask 01/30/22 09:04 36.8 C 72 20 145/96 H 97 Room Air O2 Flow Rate 01/30/22 15:05 01/30/22 14:45 6 01/30/22 14:55 4 01/30/22 14:38 6 01/30/22 09:04 Pain Intensity Left Hip: Pain Intensity: 2 Transfer of Care Handoff Completed per policy Notes Mental Status: alert / awake / arousable Patient Amnestic to Procedure: Yes Nausea / Vomiting: adequately controlled Pain: adequately controlled Airway Patency, RR, SpO2: stable & adequate BP & HR: stable & adequate Hydration State: stable & adequate Anesthetic Complications: no major complications apparent and Pt Satisfied with anesthetic care
[2022-01-30] MEDS ORDERED: SODIUM CHLORIDE 0.9% 1000ML 1,000 ML IV SCH (16:02)
[2022-01-30] MEDS ORDERED: HYDROmorphone INJ 0.5 MG/0.5 ML SYR IV PRN (16:02)
[2022-01-30] MEDS ORDERED: NALOXONE HCL 0.4 MG/1 ML VIAL/CARP IV PRN (16:02)
[2022-01-30] MEDS ORDERED: bisacodyL 10 MG SUPP PR PRN (16:02)
[2022-01-30] MEDS ORDERED: MAGNESIUM HYDROXIDE SUSP 30 ML UDC PO PRN (16:02)
[2022-01-30] MEDS ORDERED: valACYclovir HCL 500 MG TABLET PO PRN (16:02)
[2022-01-30] MEDS ORDERED: NYSTATIN CR 15 GM TUBE EXT PRN (16:02)
[2022-01-30] MEDS ORDERED: METOCLOPRAMIDE HCL INJ 5 MG/ML 2 ML VIAL IV PRN (16:02)
[2022-01-30] MEDS ORDERED: ACETAMINOPHEN 500 MG TAB ONE (16:08)
[2022-01-30] MEDS ORDERED: KETOROLAC 30 MG/ML VIAL ONE (16:08)
[2022-01-30] MEDS: KETOROLAC TROMETHAMINE 15 MG/ML VIAL IV SCH ×2 (18:22→22:35)
[2022-01-30] MEDS: DICLOFENAC SOD 1% GEL 100 GM TUBE EXT SCH ×2 (18:51→20:55)
[2022-01-30] MEDS: oxyCODONE HCL IR 5 MG TAB (IMMEDIATE RELEASE) PO PRN (19:28)
[2022-01-30] MEDS: ACETAMINOPHEN 500 MG TAB PO SCH (20:54)
[2022-01-30] MEDS: ceFAZolin 2000MG 2,000 MG/15 ML SYR IV SCH (20:54)
[2022-01-30] MEDS: SIMVASTATIN 20 MG TAB PO SCH (20:55)
[2022-01-30] MEDS: ASPIRIN 81 MG ECTAB PO SCH (20:55)
[2022-01-30] MEDS: SENNA 8.6 MG TAB PO SCH (20:55)
[2022-01-30] MEDS: DOCUSATE SODIUM 100 MG CAP PO SCH (20:55)
[2022-01-30] MEDS: ALBUTEROL HFA 8 GM INHALER INH SCH (20:55)
[2022-01-31] MEDS: KETOROLAC TROMETHAMINE 15 MG/ML VIAL IV SCH ×3 (06:02→17:04)
[2022-01-31] MEDS: ceFAZolin 2000MG 2,000 MG/15 ML SYR IV SCH (06:03)
[2022-01-31] MEDS: ACETAMINOPHEN 500 MG TAB PO SCH ×3 (06:03→21:00)
[2022-01-31] MEDS ORDERED: dexAMETHasone 4 MG TAB PO SCH (08:00)
[2022-01-31] MEDS: LOSARTAN POTASSIUM 50 MG TAB PO SCH (08:44)
[2022-01-31] MEDS: CITALOPRAM 40 MG TAB PO SCH (08:44)
[2022-01-31] MEDS: TRIAMTERENE/HCTZ 37.5/25MG CAP PO SCH (08:45)
[2022-01-31] MEDS: DOCUSATE SODIUM 100 MG CAP PO SCH ×2 (08:45→21:00)
[2022-01-31] MEDS: MULTIVITAMIN TAB PO SCH (08:45)
[2022-01-31] MEDS: ASPIRIN 81 MG ECTAB PO SCH ×2 (08:45→20:58)
[2022-01-31] MEDS: DICLOFENAC SOD 1% GEL 100 GM TUBE EXT SCH ×4 (08:46→20:58)
[2022-01-31] MEDS: FLUTICASONE/VILANTEROL 100/25MCG 14 PUFFS/INHALER INH SCH (08:49)
--- NOTE | 2022-01-31 09:18 | Orthopedic Progress Note ---
Date of Service January 31, 2022 Assessment & Plan (1) Greater trochanter fracture: Overall she is doing fairly well. Because of the fall, I do want to get another x-ray of the left hip just to be sure that the hardware or the fracture is not displaced. She needs to be in abduction pillow at night. She will have an abductor brace brought to her house on Wednesday morning. She is still a little unsteady with weightbearing and ambulation. I wanted keep her in the hospital today. I will see her tomorrow to see if she is ready to for discharge. She can be weightbearing as tolerated with a walker. Katharine Benitez was seen and examined at bedside this morning. Overall she is doing fairly well. She is not having much pain in her hip when she is lying still. She got up to ambulate to the bathroom yesterday with nursing assistance. She was having some pain in her left hip and her left hip was giving out on her. The nurse was able to slowly lower her towards the floor. She did not have any increased pain of her left hip and was able to keep her hip mostly extended during the fall. Nursing help came and she was assisted back to bed. She does not seem concerned that she injured her hip during the fall. Otherwise, she has no complaints.. Review of Systems All systems reviewed & are unremarkable except as noted in HPI & below. Physical Exam On physical examination of her left hip, the dressing is clean and dry. Her leg is out full extension. She has active dorsiflexion plantarflexion of her left ankle.. Results & Data Results & Data Laboratory Results . Diagnostic Findings Postoperative x-rays of the left hip show the hardware to be in good alignment without any evidence of displacement.. PG Care Time/CCT Total # of Minutes Spent Total Time Spent with Patient: Total time spent is greater than 50% in coordination of care (as documented) at patient's floor/unit and/or counseling patient: Coding Level of Care Code 09093 Post Operative Follow-Up Diagnoses Greater trochanter fracture S72.113A
[2022-01-31] MEDS: ALBUTEROL HFA 8 GM INHALER INH SCH ×2 (09:49→19:21)
--- NOTE | 2022-01-31 11:58 | XRay Report ---
XR hip LT 1V CLINICAL HISTORY: fall. make sure hardware not displaced TECHNIQUE: 1 views of the left hip were obtained. Comparison: Comparison is made to hip radiograph 01/30/2022 FINDINGS: Postsurgical changes of left total hip arthroplasty revision are again noted. No periarticular lucenc y or hardware fracture is seen. IMPRESSION: No evidence of periarticular lucency or hardware fracture status post fall. Expected postoperative ch anges are unchanged. ACT 112: Negative or not required by law. Electronically signed by: John Ricardo M.D. 01/31/2022 11:57 AM
[2022-01-31] MEDS: oxyCODONE HCL IR 5 MG TAB (IMMEDIATE RELEASE) PO PRN (15:43)
[2022-01-31] MEDS: SIMVASTATIN 20 MG TAB PO SCH (20:57)
[2022-01-31] MEDS: SENNA 8.6 MG TAB PO SCH (20:58)
[2022-02-01] MEDS: KETOROLAC TROMETHAMINE 15 MG/ML VIAL IV SCH ×3 (00:02→12:09)
[2022-02-01] MEDS: ACETAMINOPHEN 500 MG TAB PO SCH (05:22)
[2022-02-01] MEDS: ALBUTEROL HFA 8 GM INHALER INH SCH (07:15)
--- NOTE | 2022-02-01 08:17 | Orthopedic Progress Note ---
Date of Service February 01, 2022 Assessment & Plan (1) Greater trochanter fracture: Unfortunately she is having a little bit of trouble ambulating without her leg giving out on her. I think it is best she go to [facility]. She is scheduled to be fitted for an abduction brace tomorrow at rehab. She is on aspirin 81 mg twice a day for DVT prophylaxis. She can be discharged to [facility] today. She will follow-up with orthopedics in 2 weeks. Katharine Benitez was seen and examined at bedside this morning. Overall she is doing okay. She was able to ambulate a little bit yesterday with therapy but she felt like her hip was going to give out on her again. The therapist has recommended discharge to [facility]. She is not having too much pain.. Review of Systems All systems reviewed & are unremarkable except as noted in HPI & below. Physical Exam On physical examination of the left hip, the dressing is clean and dry. Her legs are out full extension. She has active dorsiflexion plantarflexion of her left ankle.. Results & Data Results & Data Laboratory Results . Diagnostic Findings X-rays reviewed after the fall do show a little bit of displacement of the greater trochanter fracture. It appears that about 10 to 15% of the greater trochanteric tip has avulsed out from under the hardware. The hardware is still intact.. PG Care Time/CCT Total # of Minutes Spent Total Time Spent with Patient: Total time spent is greater than 50% in coordination of care (as documented) at patient's floor/unit and/or counseling patient: Coding Level of Care Code 11778 Post Operative Follow-Up Diagnoses Greater trochanter fracture S72.113A
--- NOTE | 2022-02-01 08:19 | Discharge Summary ---
Date of Service February 01, 2022 Principal Diagnosis Same as "Discharge Diagnosis" noted below under Discharge Instructions. Discharge Exam On physical examination of the left hip, the dressing is clean and dry. Her legs are out full extension. She has active dorsiflexion plantarflexion of her left ankle.. Discharge Data Procedures Performed Operation Date: 01/30/22 11:35 Actual Procedures p Left Open Reduction Internal Fixation Greater Trochanteric Fracture(Left) - Anand Katz DO Ordered Studies 01/30/22 07:00 FL hip LT 2-3V Routine 01/30/22 11:56 US - OR guided needle placemen Routine Hospital Course (1) Greater trochanter fracture: On January 30, 2022 Eli arrived at [facility] and underwent an open reduction internal fixation of a left greater trochanter fracture. Postoperatively she was started on aspirin for DVT prophylaxis and transferred to the general orthopedic floors. Her hospital course was relatively uneventful. On postop day #1, she did have an incident where she was walking to the bathroom with assistance and her hip was feeling like it was giving out on her. She was slowly lowered down. X-rays were obtained and the hardware was still intact. We decided to keep her an extra day. On postop day #2, she was still having some weakness in her left hip. She was able to put some weight on her leg but she did not feel comfortable walking any distance. The therapist felt it was best she was discharged to [facility]. She was then discharged to [facility]. She will follow-up with orthopedics in 2 weeks. PG Care Time/CCT Total # of Minutes Spent Total Time Spent with Patient: Total time spent is greater than 50% in coordination of care (as documented) at patient's floor/unit and/or counseling patient: Discharge Plan Discharge Items Patient Disposition: Home - Home Health Services Reason For Visit: POST SURGICAL CARE Discharge Diagnosis: Status post fixation greater trochanter fracture Activity: Per Instructions section Non-emergency contact: Surgeon Call non-emergency contact if: your wound has increased redness and your wound has increased drainage Follow-up/Referrals: Gaviota Pope D.O. [Primary Care Provider] - Diet: Regular Addtl Attending Provider Instructions: ORTHOPEDIC INSTRUCTIONS Activity Recommendations: Weightbearing as tolerated with a walker Follow hip precautions by avoiding flexion beyond 90 degrees and abduction Abductor brace will be delivered and fitted at [facility] on Wednesday. Medications: Take Percocet as needed for pain Take aspirin 81 mg twice a day for the next 6 weeks for DVT prophylaxis Dressing Care: [place] can be open to air as long as the incisions are not draining. If the incisions are draining or if the marcia are getting caught on your clothes then please cover the marcia with dry gauze. Change the dressings as necessary to keep the incision as dry as possible Showering: You may shower 5 days from the day of surgery as long as the incisions are not draining. Do not soak the incision. Let soapy water run over the marcia and pat them dry. Things To Watch For: 1. Drainage from the incision site that occurs more than one week after your surgery. 2. Increased redness at the incision site. 3. Fever above 102 degrees Fahrenheit. 4. Unusual chest pain or shortness of breath. 5. Call [facility] at with any of the above problems Follow-Up Visit: Follow-up with Dr. Katz's PA (Anand Owusu) 2-3 weeks after your day of surgery. He will remove your marcia and answer any questions. If you have any additional questions or concerns, Dr Katz is usually in the office at the same time and will be available Please call the office to schedule an appointment for a time that works for you Pending Studies at Discharge: No Stand-Alone Forms: My [facility], Smoking Cessation Medications and DC Order Prescriptions: New oxycodone-acetaminophen 5-325 mg tablet 1 tab PO Q6H PRN (Reason: pain) Qty: 30 0RF aspirin 81 mg Tablet,Delayed Release (Dr/Ec) 81 mg PO BID 42 Days Qty: 84 0RF Continued tramadol 50 mg tablet 50 mg PO Q8H PRN (Reason: pain) Qty: 60 0RF biotin 2,500 mcg capsule 5,000 mcg PO QAM cholecalciferol (vitamin D3) 125 mcg (5,000 unit) capsule 125 mcg PO QAM citalopram 40 mg tablet 40 mg PO QAM diclofenac sodium 1 % gel 2 g topical QID Rx Instructions: apply to single elbow, wrist or hand; for hand includes palm/fingers/back of hand omega 1-sql-lyn-fish oil [Fish Oil] 300-1,000 mg capsule 1 cap PO BID losartan 100 mg tablet 100 mg PO QAM multivitamin Tablet 1 tab PO QAM nystatin 100,000 unit/gram cream 1 applic topical DAILY PRN (Reason: NEEDED) omeprazole 40 mg capsule,delayed release(DR/EC) 40 mg PO BID Probiotic Acidophilus 1.5 mg (250 million cell) capsule 1 mmu cells PO QDL simvastatin 20 mg tablet 20 mg PO QPM triamterene-hydrochlorothiazid 37.5-25 mg capsule 1 cap PO QAM valacyclovir 1 gram tablet 1,000 mg PO UD PRN (Reason: Sweating) Label Comments: PT STATES TAKES FOR SWEATING? albuterol sulfate [Ventolin HFA] 90 mcg/actuation HFA aerosol inhaler 1 inh inhalation BID fluticasone propion-salmeterol [Advair Diskus] 100-50 mcg/dose Blister With Device 1 inh INHALATION BID Discharge Orders: Discharge Order (Routine); Ordered 02/01/22 Ordered By: Anand Katz Admission Data Admit Date/Time: 01/30/22 14:40 Attending Provider: Anand Katz Admit Provider: Anand Katz Primary Care Provider: Gaviota Pope Other Providers: [facility]
[2022-02-01] MEDS: LOSARTAN POTASSIUM 50 MG TAB PO SCH (08:47)
[2022-02-01] MEDS: CITALOPRAM 40 MG TAB PO SCH (08:47)
[2022-02-01] MEDS: MULTIVITAMIN TAB PO SCH (08:47)
[2022-02-01] MEDS: TRIAMTERENE/HCTZ 37.5/25MG CAP PO SCH (08:47)
[2022-02-01] MEDS: ASPIRIN 81 MG ECTAB PO SCH (08:47)
[2022-02-01] MEDS: DICLOFENAC SOD 1% GEL 100 GM TUBE EXT SCH (08:51)
[2022-02-01] MEDS: FLUTICASONE/VILANTEROL 100/25MCG 14 PUFFS/INHALER INH SCH (08:52)
[2022-02-01] MEDS: DOCUSATE SODIUM 100 MG CAP PO SCH (11:47)
== END 2022-02-01 15:39 ==
LOC: PACUINP 08:33 → ASU 08:33 → 3N 17:02
DX: S72.115A Nondisplaced fracture of greater trochanter of left femur, initial encounter for closed fracture; Z91.011 Allergy to milk products; Z88.1 Allergy status to other antibiotic agents; X58.XXXA Exposure to other specified factors, initial encounter; Z79.51 Long term (current) use of inhaled steroids